=== PATIENT | female | born 1955 | race Caucasian/White ===

== ENCOUNTER → 2017-09-08 | Outpatient (CLI) | payer OTHER ==
--- NOTE | 2017-09-08 13:28 | DIAGNOSTIC IMAGING REPORT ---
CHEST 2 VIEWS ROUTINE CLINICAL HISTORY: 62 years-old Female presenting with R06.02 Shortness of breath. TECHNIQUE: PA and lateral views of the chest were obtained. COMPARISON: 11/23/2013. FINDINGS: Atherosclerosis of the aortic arch. Cardiac silhouette top normal in size. Patchy hazy opacity in the right lower lung. Trace right pleural effusion cannot be excluded. Left lung and pleural spaces grossly clear. No pneumothorax. Osseous structures normal. IMPRESSION: 1. Right basilar infiltrate concerning for pneumonia or less likely aspiration. Electronically signed by: Payam Tatum M.D. 09/08/2017 1:27 PM Dictated Date/Time: 09/08/2017 1:26 PM
== END | disposition home or self-care (01) ==
LOC: C.RAD1850 12:57
PROVIDERS: ATTEND Physician Assistant
DX: R91.8 Other nonspecific abnormal finding of lung field (principal); R06.02 Shortness of breath

== ENCOUNTER → 2017-09-10 | Outpatient (CLI) | payer OTHER ==
[2017-09-10 13:23] LABS: EOS % 0.4 %; EOS ABS # 0.04 K/uL (0-0.5); HEMATOCRIT 40.3 % (37-47); HEMOGLOBIN 12.9 g/dL (12.0-16.0); IG# 0.03 K/uL (0.00-0.02); LYMPH % 17.4 %; LYMPH ABS # 1.98 K/uL (1.2-3.4); MEAN CELL VOLUME 96.2 fL (80-100); MEAN CORPUSCULAR HEMOGLOBIN 30.8 pg (25-34); MEAN PLATELET VOLUME 10.7 fL (7.4-10.4); MONO % 7.9 %; NEUT ABS # 8.42 K/uL (1.4-6.5); PLATELET COUNT 269 K/uL (130-400); RED CELL DISTRIBUTION WIDTH SD 44.9 fL (36.4-46.3); WHITE BLOOD COUNT 11.37 K/uL (4.8-10.8)
[2017-09-10 16:38] LABS: ALBUMIN 3.1 gm/dl (3.4-5.0); ALT/SGPT 27 U/L (12-78); BLOOD UREA NITROGEN 20 mg/dl (7-18); CALCIUM 8.8 mg/dl (8.5-10.1); CARBON DIOXIDE 35 mmol/L (21-32); CHOLESTEROL 211 mg/dl (0-200); CREATININE 0.68 mg/dl (0.60-1.20); GLUCOSE 98 mg/dl (70-99); POTASSIUM 3.3 mmol/L (3.5-5.1); SODIUM 142 mmol/L (136-145)
[2017-09-10 16:48] LABS: ALKALINE PHOSPHATASE 87 U/L (45-117); AST/SGOT 10 U/L (15-37); LDL CHOLESTEROL CALCULATED 124 mg/dl; TOTAL PROTEIN 6.6 gm/dl (6.4-8.2); TRANSFERRIN 240 mg/dl (200-360)
== END | disposition home or self-care (01) ==
LOC: C.LAB1850 11:00
PROVIDERS: ATTEND Physician Assistant
DX: I10 Essential (primary) hypertension (principal); R00.0 Tachycardia, unspecified

== ENCOUNTER → 2017-09-17 | Outpatient (CLI) | payer OTHER ==
--- NOTE | 2017-09-17 11:07 | DIAGNOSTIC IMAGING REPORT ---
CHEST 2 VIEWS ROUTINE HISTORY: 62 years-old Female J18.9 [id number] acute pneumonia COMPARISON: Chest radiographs 09/08/2017 TECHNIQUE: PA and lateral views of the chest FINDINGS: Cardiac silhouette is mildly enlarged, unchanged. Atherosclerosis of the aorta. Lungs are mildly hyperinflated. There is no pneumothorax, pleural effusion or overt pulmonary edema. There are persistent patchy subsegmental right basilar opacities which have improved from prior. Bones of the chest appear grossly intact. IMPRESSION: Persistent yet improved patchy subsegmental right basilar opacities suggest resolving pneumonia. The above report was generated using voice recognition software. It may contain grammatical, syntax or spelling errors. Electronically signed by: Sky Sterling M.D. 09/17/2017 11:05 AM Dictated Date/Time: 09/17/2017 11:04 AM
== END | disposition home or self-care (01) ==
LOC: C.RAD1850 10:57
PROVIDERS: ATTEND Physician Assistant
DX: J18.9 Pneumonia, unspecified organism (principal)